=== PATIENT | female | born 1995 | race Caucasian/White ===

== ENCOUNTER → 2024-10-06 | Outpatient (CLI) | payer OTHER ==
[2024-10-06 14:30] LABS: Creatinine Urine 41.8 mg/dL (27.00-270.00); Microalbumin, Urine Quant. 9.79 mg/L (0.000-20.000); Protein, Urine Quantitative 5.4 mg/dL (0.0-11.9)
== END ==
LOC: LAB 09:00 → LAB SHORT 09:00 → LAB FUT 10-04 07:40
PROVIDERS: Internal Medicine Nephrology
DX: N18.2 Chronic kidney disease, stage 2 (mild) (principal); D63.1 Anemia in chronic kidney disease; N25.81 Secondary hyperparathyroidism of renal origin; E55.9 Vitamin D deficiency, unspecified; E78.00 Pure hypercholesterolemia, unspecified; R76.9 Abnormal immunological finding in serum, unspecified; R94.5 Abnormal results of liver function studies; R94.6 Abnormal results of thyroid function studies
CPT/HCPCS: 81050; 82043; 82570; 84156